=== PATIENT | male | born 1955 | race Caucasian/White ===

== ENCOUNTER → 2020-12-04 | Outpatient (CLI) | payer OTHER, MEDICARE ==
[~2020-12-04] MED LIST: CYCLOBENZAPRINE10 MG PO; NAPROSYN500 MG PO
== END ==
LOC: EXRD 08:01
DX: M25.572 Pain in left ankle and joints of left foot (principal); M25.571 Pain in right ankle and joints of right foot
CPT/HCPCS: 73630

== ENCOUNTER 2021-02-07 08:53 | Emergency (ER) | payer OTHER, MEDICARE ==
[2021-02-07] MEDS ORDERED: CYCLOBENZAPRINE10 MG PO (11:09)
[2021-02-07] MEDS ORDERED: NAPROSYN500 MG PO (11:09)
== END 2021-02-07 11:45 | disposition home or self-care (01) ==
LOC: ER1 08:53
DX: S20.211A Contusion of right front wall of thorax, initial encounter (principal); M16.11 Unilateral primary osteoarthritis, right hip; Z79.899 Other long term (current) drug therapy; W20.8XXA Other cause of strike by thrown, projected or falling object, initial encounter
CPT/HCPCS: 71111; 96372; 99283; J1885